=== PATIENT | female | born 1940 | race Hispanic/Latino ===

== ENCOUNTER 2019-06-01 10:13 | Outpatient (CLI) | payer MEDICARE ==
--- NOTE | 2019-06-01 11:47 | BD ---
BONE DENSITOMETRY USING DEXA: Date: 06/01/2019 HISTORY: Postmenopausal screening for osteoporosis. FINDINGS: Lumbar Spine: BMD (g/cm2) L1 0.923 T-Score: -0.6 Z-Score: 1.6 L2 0.922 T-Score: -1.0 Z-Score: 1.5 L3 0.967 T-Score: -1.1 Z-Score: 1.6 L4 1.003 T-Score: -0.5 Z-Score: 2.2 L1-L4 0.958 T-Score: -0.8 Z-Score: 1.7 Femoral Neck: 0.570 T-Score: -2.5 Z-Score: -0.4 Total Femur: 0.772 T-Score: -1.4 Z-Score: 0.5 IMPRESSION: Osteoporosis. POS: TORIBIO
== END 2019-06-01 10:14 | disposition home or self-care (01) ==
LOC: BICMAMMO 10:13
PROVIDERS: ATTEND Student in an Organized Health Care Education/Training Program
DX: Z13.820 Encounter for screening for osteoporosis (principal); M81.0 Age-related osteoporosis without current pathological fracture
CPT/HCPCS: 77080

== ENCOUNTER 2025-05-22 07:57 | Day surgery (SDC) | payer OTHER ==
[2025-05-16 13:53] VITALS: BMI 21.5
[2025-05-22] MEDS ORDERED: Bupivacaine 0.25% HCL 30 ML VIAL ONE (08:26)
[2025-05-22] MEDS ORDERED: Acetaminophen 325 MG TAB ONE (08:30)
[2025-05-22 08:47] LABS: #Basophils 0.03 10x3/uL (0.0-0.2); #Eosinophils 0.10 10x3/uL (0.0-0.7); #Monocytes 0.55 10x3/uL (0.11-0.59); #Neutrophils 4.10 10x3/uL (1.40-6.50); %Basophils 0.4 % (0.0-1.0); %Eosinophils 1.3 % (0.0-10.0); %Lymphocytes 37.7 % (21.0-51.0); %Monocytes 7.1 % (0.0-10.0); %Neutrophils 53.2 % (42.0-75.0); Hematocrit 44.2 % (36.0-47.0); Hemoglobin 13.4 g/dL (12.0-16.0); Mean Corpuscular Hemoglobin 26.8 pg (27.0-31.0); Mean Corpuscular Volume 88.4 fL (78.0-98.0); Platelet Count 326 10x3/uL (130-400); Red Blood Cell (RBC) Count 5.00 mill/uL (4.20-5.40); White Blood Cell (WBC) Count 7.71 10x3/uL (4.8-10.8)
[2025-05-22 09:00] LABS: Anion Gap 18 mmol/L (10-20); BUN (Urea Nitrogen) 20 mg/dL (9.8-20.1); Calc. Creatinine Clearance 35 mL/min (70-130); Calcium 9.9 mg/dL (7.8-10.44); Carbon Dioxide 27 mmol/L (23-31); Chloride 101 mmol/L (98-107); Glucose 210 mg/dL (83-110); Potassium 3.2 mmol/L (3.5-5.1); Sodium 143 mmol/L (136-145)
[2025-05-22] MEDS ORDERED: metroNIDAZOLE 500 MG (100 mL) BAG ONE (09:04)
[2025-05-22] MEDS ORDERED: fentaNYL PF 100 MCG/2 ML SYRINGE ONE (09:08)
[2025-05-22] MEDS ORDERED: PROPOFOL 20 ML ONE (09:09)
[2025-05-22] MEDS ORDERED: Lidocaine 1% PF 5 ML VIAL ONE (09:11)
[2025-05-22] MEDS ORDERED: Rocuronium Bromide 10 MG/ML (10ML VIAL) ONE (09:11)
[2025-05-22] MEDS ORDERED: Ondansetron PF 4 MG/2 ML Vial ONE (09:33)
[2025-05-22] MEDS ORDERED: SUGAMMADEX SODIUM 200 MG/2 ML VIAL ONE (09:41)
== END 2025-05-22 11:35 | disposition home or self-care (01) ==
LOC: SDC 07:57
PROVIDERS: ATTEND Surgery
PROC: 06BY0ZC Excision of Hemorrhoidal Plexus, Open Approach (ICD-10-PCS; principal; 2025-05-22)
DX: K64.3 Fourth degree hemorrhoids (principal); K62.3 Rectal prolapse; I10 Essential (primary) hypertension; E11.9 Type 2 diabetes mellitus without complications; E78.5 Hyperlipidemia, unspecified; Z87.891 Personal history of nicotine dependence; Z79.84 Long term (current) use of oral hypoglycemic drugs; Z79.899 Other long term (current) drug therapy
CPT/HCPCS: 46947; 80048; 85025; J0169; J0665; J1100; J2405; J2704; 88304; 93005; 93010